=== PATIENT | female | born 1990 | race African-American/Black ===

== ENCOUNTER 2019-01-14 09:43 | Emergency (ER) | payer SELFPAY ==
[~2019-01-14] VITALS: Ht 162.6 cm; Wt 100.0 kg
[2019-01-14] MEDS ORDERED: ALL DAY10 MG PO (10:17)
[2019-01-14] MEDS ORDERED: SUDAFED 12HR120 MG PO (10:17)
[2019-01-14 10:25] VITALS: BP 114/73
== END 2019-01-14 10:32 | disposition home or self-care (01) | DRG 156 ==
LOC: ED 09:43
DX: H91.92 Unspecified hearing loss, left ear (principal); J30.9 Allergic rhinitis, unspecified; F17.210 Nicotine dependence, cigarettes, uncomplicated

== ENCOUNTER 2019-05-13 14:59 | Emergency (ER) | payer MEDICAID ==
[~2019-05-13] VITALS: Ht 162.6 cm; Wt 106.0 kg
[~2019-05-13 14:59] MED LIST: ALL DAY10 MG PO; SUDAFED 12HR120 MG PO
[2019-05-13 15:03] VITALS: BP 115/69
== END 2019-05-13 17:03 | disposition left against medical advice (07) ==
LOC: ED 14:59
DX: N89.8 Other specified noninflammatory disorders of vagina (principal); F17.210 Nicotine dependence, cigarettes, uncomplicated; Z91.19 Patient's noncompliance with other medical treatment and regimen